=== PATIENT | female | born 1940 | race Asian ===

== ENCOUNTER 2016-09-24 10:29 | Outpatient (CLI) | payer OTHER ==
[~2016-09-24 10:29] MED LIST: ASA LOW DOSE81 MG PO; BENICAR40 MG PO; CHLORTHALID25 MG PO; CLON0.5T36 PO; CLONIDINE0.1 MG PO; HYDR25TA60 PO; HYDR5TAB9 PO; LORCET PLUS 7.51 TAB PO; SIMV20TA2 PO
== END 2016-09-24 19:13 | disposition home or self-care (01) ==
LOC: RAD 10:29
DX: R06.02 Shortness of breath (principal)

== ENCOUNTER 2016-12-11 09:23 | Emergency (ER) | payer OTHER ==
[~2016-12-11] VITALS: Ht 167.6 cm; Wt 72.6 kg
[2016-12-11 09:42] VITALS: TEMP 98.2
[2016-12-11] MEDS ORDERED: CADUET10 MG/40 M OR (09:42)
[2016-12-11] MEDS ORDERED: LOSA50TA PO (09:42)
[2016-12-11 10:23] LABS: POTASSIUM 4.2 mmol/L (3.6-5.2); SODIUM 135 mmol/L (136-145)
[2016-12-11 10:33] LABS: PLATELET COUNT 278 K/uL (152-353)
[2016-12-11 13:15] VITALS: BP 136/80
== END 2016-12-11 13:15 | disposition home or self-care (01) ==
LOC: ED 09:23
PROVIDERS: Specialist
DX: R01.1 Cardiac murmur, unspecified (principal); R29.818 Other symptoms and signs involving the nervous system
CPT/HCPCS: 36415; 80053; 81000; 82550; 82553; 83735; 84100; 84484; 85027; 85379; 93005; 99283

== ENCOUNTER 2017-11-21 07:09 | Emergency (ER) | payer OTHER ==
[~2017-11-21] VITALS: Ht 165.1 cm; Wt 72.6 kg
[~2017-11-21 07:09] MED LIST changes: +CADUET10 MG/40 M OR; +LOSA50TA PO
[2017-11-21 07:16] VITALS: TEMP 97.8
[2017-11-21] MEDS ORDERED: HYDR25CA25 PO (07:25)
[2017-11-21] MEDS ORDERED: AMLODIPINE BESYLATE PO (07:26)
[2017-11-21 08:09] LABS: PLATELET COUNT 434 K/uL (152-353)
[2017-11-21 08:40] LABS: POTASSIUM 3.8 mmol/L (3.6-5.2)
[2017-11-21 08:41] LABS: PARTIAL THROMBOPLASTIN TIME 30.8 SECONDS (24.5-33.6)
[2017-11-21 09:33] VITALS: BP 139/43
== END 2017-11-21 09:47 | disposition home or self-care (01) ==
LOC: ED 07:09
DX: R00.1 Bradycardia, unspecified (principal); I10 Essential (primary) hypertension; R20.0 Anesthesia of skin; M79.602 Pain in left arm
CPT/HCPCS: 36415; 80053; 82550; 84484; 85027; 85610; 85730; 93005; 99284

== ENCOUNTER 2018-05-21 02:17 | Emergency (ER) | payer OTHER ==
[~2018-05-21] VITALS: Ht 162.6 cm; Wt 75.3 kg
[~2018-05-21 02:17] MED LIST changes: +AMLODIPINE BESYLATE PO; +HYDR25CA25 PO
[2018-05-21 02:54] LABS: PLATELET COUNT 236 K/uL (152-353)
[2018-05-21 03:03] LABS: POTASSIUM 3.7 mmol/L (3.6-5.2)
[2018-05-21 03:19] LABS: PARTIAL THROMBOPLASTIN TIME 29.6 SECONDS (24.5-33.6)
[2018-05-21 04:40] VITALS: BP 152/50; TEMP 98
== END 2018-05-21 04:41 | disposition home or self-care (01) ==
LOC: ED 02:17
PROVIDERS: Family Medicine
DX: K21.9 Gastro-esophageal reflux disease without esophagitis (principal); R07.89 Other chest pain
CPT/HCPCS: 36415; 80053; 82550; 84484; 85027; 85610; 85730; 93005; 96374; 99284; J3490

== ENCOUNTER 2018-05-30 23:54 | Emergency (ER) | payer OTHER ==
[~2018-05-30] VITALS: Ht 162.6 cm; Wt 75.3 kg
[2018-05-31] MEDS ORDERED: HYDR25TA57 PO (00:12)
[2018-05-31] MEDS ORDERED: PANTOPRAZOLE 40MG TA PO (00:13)
[2018-05-31] MEDS ORDERED: CLON0.1T16 PO (00:13)
[2018-05-31 02:48] VITALS: BP 173/62; TEMP 98.1
== END 2018-05-31 02:50 | disposition home or self-care (01) ==
LOC: ED 23:54
DX: I10 Essential (primary) hypertension (principal)
CPT/HCPCS: 99283

== ENCOUNTER 2018-07-15 10:09 | Emergency (ER) | payer OTHER ==
[~2018-07-15] VITALS: Ht 162.6 cm; Wt 72.6 kg
[~2018-07-15 10:09] MED LIST changes: +CLON0.1T16 PO; +HYDR25TA57 PO; +PANTOPRAZOLE 40MG TA PO
[2018-07-15 11:11] LABS: POTASSIUM 3.6 mmol/L (3.6-5.2)
[2018-07-15 11:24] LABS: PLATELET COUNT 89 K/uL (152-353)
[2018-07-15] MEDS ORDERED: HYDRALAZINE HY100 MG PO (12:03)
[2018-07-15] MEDS ORDERED: HYZAAR1 TA2 PO (12:04)
[2018-07-15] MEDS ORDERED: CLON1TAB18 PO (12:06)
[2018-07-15] MEDS ORDERED: ALEN70TA19 PO (12:07)
[2018-07-15 17:37] VITALS: BP 186/70; TEMP 98
== END 2018-07-15 17:37 | disposition short-term general hospital (02) ==
LOC: ED 10:09
PROVIDERS: Emergency Medicine
DX: R79.89 Other specified abnormal findings of blood chemistry (principal); R00.1 Bradycardia, unspecified
CPT/HCPCS: 36415; 80053; 82550; 83735; 84484; 85027; 93005; 99284

== ENCOUNTER 2018-11-23 12:09 | Outpatient (CLI) | payer OTHER ==
[~2018-11-23 12:09] MED LIST changes: +ALEN70TA19 PO; +CLON1TAB18 PO; +HYDRALAZINE HY100 MG PO; +HYZAAR1 TA2 PO
== END 2018-11-23 19:16 | disposition home or self-care (01) ==
LOC: RAD 12:09
DX: L60.3 Nail dystrophy (principal); M79.675 Pain in left toe(s)

== ENCOUNTER 2019-01-01 08:24 | Emergency (ER) | payer OTHER ==
[~2019-01-01] VITALS: Ht 162.6 cm; Wt 72.6 kg
[2019-01-01 09:22] LABS: PLATELET COUNT 229 K/uL (152-353)
[2019-01-01 09:34] LABS: POTASSIUM 3.6 mmol/L (3.6-5.2)
[2019-01-01 11:19] LABS: PARTIAL THROMBOPLASTIN TIME 28.3 SECONDS (24.5-33.6)
[2019-01-01] MEDS ORDERED: CLOP75TA2 PO (13:25)
[2019-01-01] MEDS ORDERED: HYDR25TA60 PO (13:34)
[2019-01-01] MEDS ORDERED: AMLODIPINE BESYLATE PO (13:35)
[2019-01-01] MEDS ORDERED: COZAAR100 MG PO (13:36)
[2019-01-01] MEDS ORDERED: DIPH25CA90 PO (13:37)
[2019-01-01 15:45] VITALS: BP 159/55
== END 2019-01-01 15:45 | disposition home or self-care (01) ==
LOC: ED 08:24
PROVIDERS: Family Medicine
DX: R13.19 Other dysphagia (principal); K22.4 Dyskinesia of esophagus; R06.02 Shortness of breath; R00.1 Bradycardia, unspecified; Z79.899 Other long term (current) drug therapy
CPT/HCPCS: 36415; 80053; 80307; 81000; 82150; 82550; 82553; 83690; 83735; 83880; 84443; 84484; 85027; 85379; 85610; 85651; 85730; 87651; 93005; 96374; 96375; 99284; J1200; J2930; Q9963

== ENCOUNTER 2019-02-03 12:50 | Outpatient (CLI) | payer OTHER ==
[~2019-02-03 12:50] MED LIST changes: +CLOP75TA2 PO; +COZAAR100 MG PO; +DIPH25CA90 PO
== END 2019-02-03 21:46 | disposition home or self-care (01) ==
LOC: LABW 12:50
DX: K64.0 First degree hemorrhoids (principal)
CPT/HCPCS: 82272

== ENCOUNTER 2019-02-23 11:03 | Day surgery (SDC) | payer OTHER | END 2019-02-23 13:35 | disposition home or self-care (01) | LOC: OR 11:03 | PROC: 0DB68ZZ Excision of Stomach, Via Natural or Artificial Opening Endoscopic (ICD-10-PCS; principal; 2019-02-23) | PROC: 0D758ZZ Dilation of Esophagus, Via Natural or Artificial Opening Endoscopic (ICD-10-PCS; 2019-02-23) | DX: K29.50 Unspecified chronic gastritis without bleeding (principal); K22.10 Ulcer of esophagus without bleeding; K22.2 Esophageal obstruction; K44.9 Diaphragmatic hernia without obstruction or gangrene; R13.19 Other dysphagia; K21.0 Gastro-esophageal reflux disease with esophagitis; R10.13 Epigastric pain; K25.9 Gastric ulcer, unspecified as acute or chronic, without hemorrhage or perforation | CPT/HCPCS: J2001; J2405; J2704 ==

== ENCOUNTER 2019-07-02 01:29 | Observation (INO) | payer OTHER ==
[~2019-07-02] VITALS: Ht 165.1 cm; Wt 73.6 kg
[2019-07-02] VITALS (8 sets, daily range): BP systolic 149–189; BP diastolic 49–78; TEMP 97.7–97.8; Ht 165.1 cm; Wt 73.6 kg
[2019-07-02] MEDS ORDERED: PRAVASTATIN10 MG PO (01:49)
[2019-07-02] MEDS ORDERED: LISI20TA31 PO ×2 (01:50→11:58)
[2019-07-02 02:53] LABS: POTASSIUM 3.3 mmol/L (3.6-5.2)
[2019-07-02 03:31] LABS: PLATELET COUNT 209 K/uL (152-353)
[2019-07-02 03:32] LABS: PARTIAL THROMBOPLASTIN TIME 22.5 SECONDS (24.5-33.6)
--- NOTE | 2019-07-02 17:15 | NUR ---
PATIENT GIVEN DISCHARGE INSTRUCTIONS WITH VERBAL UNDERSTANDING. PATIENT EDUCATED ON THE IMPORTANCE OF KNOWING THE S/S OF CHEST PAIN /[place]. PATIENT UNDERSTANDS TEACHING. IV 22G TO THE RIGHT HAND REMOVED WITH TIP INTACT, 2X2 PLACED AND SECURED WITH TAPE.
== END 2019-07-02 22:11 | disposition home or self-care (01) ==
LOC: ED 01:29 → MED/SURG 07:15
PROVIDERS: ADMIT Family Medicine
DX: R07.89 Other chest pain (principal); I25.10 Atherosclerotic heart disease of native coronary artery without angina pectoris; I10 Essential (primary) hypertension; E78.49 Other hyperlipidemia; M81.8 Other osteoporosis without current pathological fracture; K21.9 Gastro-esophageal reflux disease without esophagitis
CPT/HCPCS: 36415; 80053; 82550; 82553; 84484; 85027; 85379; 85610; 85730; 93005; 96374; 99220; 99284; G0378

== ENCOUNTER 2019-09-26 12:33 | Emergency (ER) | payer OTHER ==
[~2019-09-26] VITALS: Ht 162.6 cm; Wt 73.9 kg
[~2019-09-26 12:33] MED LIST changes: +LISI20TA31 PO; +PRAVASTATIN10 MG PO
[2019-09-26 13:12] LABS: PLATELET COUNT 236 K/uL (152-353)
[2019-09-26 13:40] LABS: POTASSIUM 3.4 mmol/L (3.6-5.2)
[2019-09-26 14:14] VITALS: BP 157/38; TEMP 97.9
== END 2019-09-26 14:14 | disposition home or self-care (01) ==
LOC: ED 12:33
PROVIDERS: Family Medicine
DX: E86.0 Dehydration (principal)
CPT/HCPCS: 36415; 80053; 81000; 85027; 99283

== ENCOUNTER 2019-10-28 07:23 | Emergency (ER) | payer OTHER ==
[~2019-10-28] VITALS: Ht 162.6 cm; Wt 72.6 kg
[2019-10-28 08:11] LABS: PLATELET COUNT 202 K/uL (152-353)
[2019-10-28 09:55] VITALS: BP 142/57; TEMP 98.4
== END 2019-10-28 09:56 | disposition home or self-care (01) ==
LOC: ED 07:23
PROVIDERS: Hospitalist
DX: U07.1 COVID-19 (principal); R10.84 Generalized abdominal pain; R19.7 Diarrhea, unspecified; R11.2 Nausea with vomiting, unspecified
CPT/HCPCS: 36415; 80053; 81000; 83605; 83690; 85027; 96360; 96375; 99284; J2405

== ENCOUNTER 2020-01-20 08:37 | Outpatient (CLI) | payer OTHER | END 2020-01-20 20:34 | disposition home or self-care (01) | LOC: CT 08:37 | DX: G44.229 Chronic tension-type headache, not intractable (principal) ==

== ENCOUNTER 2020-02-05 08:48 | Emergency (ER) | payer OTHER ==
[~2020-02-05] VITALS: Ht 162.6 cm; Wt 72.6 kg
[2020-02-05 08:59] VITALS: TEMP 98.7
[2020-02-05 10:13] LABS: POTASSIUM 3.9 mmol/L (3.6-5.2)
[2020-02-05 10:20] LABS: PLATELET COUNT 212 K/uL (152-353)
[2020-02-05 13:14] VITALS: BP 136/66
== END 2020-02-05 13:14 | disposition home or self-care (01) ==
LOC: ED 08:48
PROVIDERS: Family Medicine
DX: K52.89 Other specified noninfective gastroenteritis and colitis (principal); E87.1 Hypo-osmolality and hyponatremia; I10 Essential (primary) hypertension
CPT/HCPCS: 36415; 80053; 81000; 85027; 87502; 87651; 96360; 96375; 99284; J2405

== ENCOUNTER 2020-02-11 18:36 | Emergency (ER) | payer OTHER ==
[~2020-02-11] VITALS: Ht 162.6 cm; Wt 74.4 kg
[2020-02-11 18:52] VITALS: TEMP 99.1
[2020-02-11 19:32] LABS: PLATELET COUNT 209 K/uL (152-353)
[2020-02-11 19:45] LABS: POTASSIUM 3.4 mmol/L (3.6-5.2)
[2020-02-11 21:12] VITALS: BP 164/61
== END 2020-02-11 21:14 | disposition home or self-care (01) ==
LOC: ED 18:36
PROVIDERS: Emergency Medicine
DX: I10 Essential (primary) hypertension (principal)
CPT/HCPCS: 36415; 80053; 85027; 93005; 99283

== ENCOUNTER 2020-02-24 15:50 | Outpatient (CLI) | payer OTHER | END 2020-02-25 03:43 | disposition home or self-care (01) | LOC: CT 15:50 | DX: E87.1 Hypo-osmolality and hyponatremia (principal); I10 Essential (primary) hypertension; R07.89 Other chest pain ==

== ENCOUNTER 2020-05-05 13:40 | Emergency (ER) | payer OTHER ==
[~2020-05-05] VITALS: Ht 162.6 cm; Wt 74.4 kg
[2020-05-05 14:03] LABS: PLATELET COUNT 210 K/uL (152-353)
[2020-05-05 14:16] LABS: POTASSIUM 3.9 mmol/L (3.6-5.2)
[2020-05-05 14:24] LABS: PARTIAL THROMBOPLASTIN TIME 23.4 SECONDS (24.5-33.6)
[2020-05-05 15:55] VITALS: BP 169/66; TEMP 97.3
== END 2020-05-05 15:55 | disposition short-term general hospital (02) ==
LOC: ED 13:40
PROVIDERS: Family Medicine
DX: R07.89 Other chest pain (principal); I21.4 Non-ST elevation (NSTEMI) myocardial infarction
CPT/HCPCS: 36415; 80053; 82550; 84484; 85027; 85610; 85730; 93005; 99284

== ENCOUNTER 2020-05-10 22:21 | Emergency (ER) | payer OTHER ==
[~2020-05-10] VITALS: Ht 162.6 cm; Wt 74.4 kg
[2020-05-10] MEDS ORDERED: SPIRONOLACT25 MG PO (23:08)
[2020-05-10] MEDS ORDERED: CLON0.1T16 PO (23:09)
[2020-05-10] MEDS ORDERED: CRESTOR20 MG PO (23:10)
[2020-05-10] MEDS ORDERED: ZESTRIL40 MG (23:11)
[2020-05-10] MEDS ORDERED: HYDRALAZINE HY100 MG PO (23:11)
[2020-05-10] MEDS ORDERED: ASPIRIN ADULT325 MG PO (23:12)
[2020-05-10 23:24] LABS: POTASSIUM 3.8 mmol/L (3.6-5.2)
[2020-05-10 23:26] LABS: PLATELET COUNT 207 K/uL (152-353)
[2020-05-10 23:32] LABS: PARTIAL THROMBOPLASTIN TIME 28.7 SECONDS (24.5-33.6)
[2020-05-11 00:35] VITALS: BP 182/52; TEMP 98.1
== END 2020-05-11 00:35 | disposition home or self-care (01) ==
LOC: ED 22:21
PROVIDERS: Hospitalist
DX: G44.209 Tension-type headache, unspecified, not intractable (principal); I10 Essential (primary) hypertension; Z98.890 Other specified postprocedural states
CPT/HCPCS: 36415; 80048; 85027; 85610; 85730; 96372; 99284; J1885; J2405

== ENCOUNTER 2020-05-28 21:20 | Observation (INO) | payer OTHER ==
[~2020-05-28] VITALS: Ht 162.6 cm; Wt 73.5 kg
[~2020-05-28 21:20] MED LIST changes: +ASPIRIN ADULT325 MG PO; +CRESTOR20 MG PO; +SPIRONOLACT25 MG PO; +ZESTRIL40 MG
[2020-05-28 21:40] VITALS: BP 204/76; TEMP 98.3
[2020-05-28 22:00] VITALS: BP 194/49
[2020-05-28 22:30] VITALS: BP 172/48
[2020-05-28 22:54] LABS: PLATELET COUNT 218 K/uL (152-353)
[2020-05-28 23:00] VITALS: BP 172/45
[2020-05-28 23:30] VITALS: BP 160/47
[2020-05-29] VITALS (10 sets, daily range): BP systolic 152–203; BP diastolic 40–61; TEMP 98.7–99; Ht 162.6 cm; Wt 73.5 kg
[2020-05-29] MEDS ORDERED: ASPIR-8181 MG PO (11:45)
[2020-05-29 13:52] LABS: POTASSIUM 3.2 mmol/L (3.6-5.2)
== END 2020-05-29 16:20 | disposition home or self-care (01) ==
LOC: ED 21:20 → MED/SURG 05-29 02:06
PROVIDERS: ADMIT Emergency Medicine Emergency Medical Services; ATTEND Internal Medicine
DX: I10 Essential (primary) hypertension (principal); K58.9 Irritable bowel syndrome, unspecified; R25.2 Cramp and spasm
CPT/HCPCS: 36415; 80048; 80053; 81000; 83605; 83735; 85027; 87040; 87635; 96360; 96361; 96365; 96366; 96375; 99220; 99284; G0378; J0360; J0696; J2060; U0003

== ENCOUNTER 2020-06-07 08:17 | Outpatient (CLI) | payer OTHER ==
[~2020-06-07 08:17] MED LIST changes: +ASPIR-8181 MG PO
[2020-06-07 09:10] LABS: PLATELET COUNT 286 K/uL (152-353)
[2020-06-07 09:34] LABS: POTASSIUM 4.1 mmol/L (3.6-5.2)
== END 2020-06-07 21:11 | disposition home or self-care (01) ==
LOC: LABW 08:17
PROVIDERS: ATTEND Internal Medicine
DX: I12.9 Hypertensive chronic kidney disease with stage 1 through stage 4 chronic kidney disease, or unspecified chronic kidney disease (principal); N18.32 Chronic kidney disease, stage 3b; R53.83 Other fatigue; D64.9 Anemia, unspecified; E53.8 Deficiency of other specified B group vitamins
CPT/HCPCS: 36415; 80053; 81000; 82024; 82088; 82306; 82330; 82533; 82570; 82607; 82728; 82746; 83540; 83550; 83735; 83835; 83970; 84100; 84155; 84244; 84436; 84439; 84443; 85027; 85652; 86038

== ENCOUNTER 2020-06-15 10:08 | Outpatient (CLI) | payer OTHER | END 2020-06-15 19:37 | disposition home or self-care (01) | LOC: LABW 10:08 | PROVIDERS: ATTEND Internal Medicine Gastroenterology | DX: R19.7 Diarrhea, unspecified (principal); R59.1 Generalized enlarged lymph nodes | CPT/HCPCS: 82705; 83630; 87015; 87045; 87324; 87328; 87329; 87338; 87449; 87899 ==

== ENCOUNTER 2020-07-12 21:31 | Emergency (ER) | payer OTHER ==
[~2020-07-12] VITALS: Ht 162.6 cm; Wt 73.5 kg
[2020-07-12 22:32] LABS: PLATELET COUNT 233 K/uL (152-353)
[2020-07-12 22:36] LABS: POTASSIUM 3.8 mmol/L (3.6-5.2)
[2020-07-12 22:44] LABS: PARTIAL THROMBOPLASTIN TIME 29.8 SECONDS (24.5-33.6)
[2020-07-13 05:05] VITALS: BP 166/77; TEMP 97.9
== END 2020-07-13 05:05 | disposition short-term general hospital (02) ==
LOC: ED 21:31
PROVIDERS: Hospitalist
DX: R07.89 Other chest pain (principal); I21.4 Non-ST elevation (NSTEMI) myocardial infarction; I25.10 Atherosclerotic heart disease of native coronary artery without angina pectoris; R00.2 Palpitations; Z20.828 Contact with and (suspected) exposure to other viral communicable diseases
CPT/HCPCS: 36415; 80053; 80320; 81000; 82550; 83880; 84484; 85027; 85610; 85730; 87635; 93005; 96361; 96365; 99284; U0003

== ENCOUNTER 2020-10-12 13:34 | Outpatient (CLI) | payer OTHER ==
[2020-10-12 14:13] LABS: PLATELET COUNT 209 K/uL (152-353)
== END 2020-10-12 22:21 | disposition home or self-care (01) ==
LOC: LABW 13:34
PROVIDERS: ATTEND Nurse Practitioner
DX: N18.32 Chronic kidney disease, stage 3b (principal)
CPT/HCPCS: 36415; 80053; 81000; 82330; 82570; 83735; 84100; 84155; 85027

== ENCOUNTER 2020-11-29 09:53 | Outpatient (CLI) | payer OTHER ==
[2020-11-29 11:15] LABS: POTASSIUM 4.3 mmol/L (3.6-5.2)
== END 2020-11-29 19:45 | disposition home or self-care (01) ==
LOC: LABW 09:53
PROVIDERS: ATTEND Internal Medicine Cardiovascular Disease
DX: Z79.899 Other long term (current) drug therapy (principal); R06.02 Shortness of breath
CPT/HCPCS: 36415; 80048; 83880

== ENCOUNTER 2021-02-08 10:32 | Outpatient (CLI) | payer OTHER | END 2021-02-08 19:18 | disposition home or self-care (01) | LOC: LABW 10:32 | PROVIDERS: ATTEND Internal Medicine | DX: N18.32 Chronic kidney disease, stage 3b (principal) | CPT/HCPCS: 36415; 84100 ==

== ENCOUNTER 2021-02-18 11:23 | Outpatient (CLI) | payer OTHER ==
[2021-02-18 11:37] LABS: PLATELET COUNT 214 K/uL (152-353)
[2021-02-18 11:53] LABS: POTASSIUM 4.4 mmol/L (3.6-5.2)
== END 2021-02-18 20:03 | disposition home or self-care (01) ==
LOC: LABW 11:23
PROVIDERS: ATTEND Nurse Practitioner Family
DX: Z01.812 Encounter for preprocedural laboratory examination (principal); Z79.82 Long term (current) use of aspirin; I10 Essential (primary) hypertension; I70.213 Atherosclerosis of native arteries of extremities with intermittent claudication, bilateral legs; I77.1 Stricture of artery
CPT/HCPCS: 36415; 80053; 85027

== ENCOUNTER 2021-02-19 10:08 | Outpatient (CLI) | payer OTHER | END 2021-02-19 19:11 | disposition home or self-care (01) | LOC: CT 10:08 | PROVIDERS: ATTEND Nurse Practitioner Family | DX: G44.229 Chronic tension-type headache, not intractable (principal) ==

== ENCOUNTER 2021-05-01 10:49 | Outpatient (CLI) | payer OTHER ==
[2021-05-01 11:25] LABS: PLATELET COUNT 196 K/uL (152-353)
[2021-05-01 11:44] LABS: POTASSIUM 3.9 mmol/L (3.6-5.2)
== END 2021-05-01 20:25 | disposition home or self-care (01) ==
LOC: LABW 10:49
PROVIDERS: ATTEND Nurse Practitioner Family
DX: N95.8 Other specified menopausal and perimenopausal disorders (principal); N18.32 Chronic kidney disease, stage 3b
CPT/HCPCS: 36415; 80053; 81000; 82330; 82570; 83735; 84100; 84155; 85027

== ENCOUNTER 2021-09-06 17:07 | Observation (INO) | payer OTHER ==
[~2021-09-06] VITALS: Ht 165.1 cm; Wt 70.4 kg
[2021-09-06 17:14] VITALS: BP 164/91; TEMP 97
[2021-09-06 17:53] LABS: PLATELET COUNT 199 K/uL (152-353)
[2021-09-06 18:03] LABS: POTASSIUM 4.1 mmol/L (3.6-5.2)
[2021-09-06 18:39] LABS: PARTIAL THROMBOPLASTIN TIME 27.3 SECONDS (24.5-33.6)
[2021-09-06 19:30] VITALS: BP 138/44
[2021-09-06 20:00] VITALS: BP 139/42
[2021-09-06 20:30] VITALS: BP 166/59
[2021-09-07] VITALS (7 sets, daily range): BP systolic 130–153; BP diastolic 39–57; TEMP 97.7–98.6; Ht 165.1 cm; Wt 70.4 kg
[2021-09-07] MEDS ORDERED: HYDR25TA60 PO (12:29)
[2021-09-07] MEDS ORDERED: DICYCLOMINE HYD10 MG PO (12:30)
[2021-09-07] MEDS ORDERED: SMZ-TMP DS1 TAB PO (12:37)
[2021-09-07] MEDS ORDERED: TELMISARTAN40 MG PO (12:42)
[2021-09-08] VITALS: BP 158/54; TEMP 98.4
[2021-09-08 04:00] VITALS: BP 146/58; TEMP 98.5
[2021-09-08 05:06] LABS: PLATELET COUNT 199 K/uL (152-353)
[2021-09-08 05:21] LABS: POTASSIUM 4.3 mmol/L (3.6-5.2)
[2021-09-08 08:00] VITALS: BP 168/57; TEMP 97.9
== END 2021-09-08 08:52 | disposition left against medical advice (07) ==
LOC: ED 17:07 → MED/SURG 18:45
PROVIDERS: Hospitalist; ADMIT Internal Medicine Endocrinology, Diabetes & Metabolism; ATTEND Internal Medicine Endocrinology, Diabetes & Metabolism
DX: R00.2 Palpitations (principal); E86.0 Dehydration; I12.9 Hypertensive chronic kidney disease with stage 1 through stage 4 chronic kidney disease, or unspecified chronic kidney disease; N18.4 Chronic kidney disease, stage 4 (severe); N17.8 Other acute kidney failure; K21.9 Gastro-esophageal reflux disease without esophagitis
CPT/HCPCS: 36415; 80053; 80320; 81000; 82550; 83880; 84484; 85027; 85610; 85730; 87635; 93005; 96360; 96361; 96365; 96367; 96372; 96374; 99220; 99284; G0378; J0696; J1650; J2405; U0003

== ENCOUNTER 2021-11-06 10:04 | Outpatient (CLI) | payer OTHER ==
[~2021-11-06 10:04] MED LIST changes: +DICYCLOMINE HYD10 MG PO; +SMZ-TMP DS1 TAB PO; +TELMISARTAN40 MG PO
[2021-11-06 10:41] LABS: PLATELET COUNT 241 K/uL (152-353)
[2021-11-06 10:44] LABS: POTASSIUM 3.8 mmol/L (3.6-5.2)
== END 2021-11-06 19:11 | disposition home or self-care (01) ==
LOC: LABW 10:04
PROVIDERS: ATTEND Internal Medicine
DX: N18.32 Chronic kidney disease, stage 3b (principal)
CPT/HCPCS: 36415; 80053; 81000; 82330; 82570; 83735; 84100; 84156; 85027

== ENCOUNTER 2021-11-24 13:14 | Emergency (ER) | payer OTHER ==
[~2021-11-24] VITALS: Ht 165.1 cm; Wt 70.3 kg
[2021-11-24 13:17] VITALS: TEMP 97.6
[2021-11-24 13:45] LABS: PLATELET COUNT 241 K/uL (152-353)
[2021-11-24 14:12] VITALS: BP 168/72
== END 2021-11-24 14:22 | disposition home or self-care (01) ==
LOC: ED 13:14
PROVIDERS: Hospitalist
DX: K59.09 Other constipation (principal)
CPT/HCPCS: 80053; 85027; 99283

== ENCOUNTER 2022-05-27 10:08 | Outpatient (CLI) | payer OTHER ==
[2022-05-27 11:04] LABS: POTASSIUM 4.3 mmol/L (3.6-5.2)
== END 2022-05-27 18:59 | disposition home or self-care (01) ==
LOC: LABW 10:08
PROVIDERS: ATTEND Internal Medicine
DX: N18.32 Chronic kidney disease, stage 3b (principal)
CPT/HCPCS: 36415; 80053

== ENCOUNTER 2022-05-28 09:07 | Outpatient (CLI) | payer OTHER | END 2022-05-28 19:14 | disposition home or self-care (01) | LOC: RAD 09:07 | PROVIDERS: ATTEND Orthopaedic Surgery | DX: M25.511 Pain in right shoulder (principal) ==

== ENCOUNTER 2022-07-24 09:43 | Outpatient (CLI) | payer OTHER | END 2022-07-24 19:18 | disposition home or self-care (01) | LOC: LABW 09:43 | PROVIDERS: ATTEND Specialist | DX: E78.49 Other hyperlipidemia (principal) | CPT/HCPCS: 36415; 80061 ==

== ENCOUNTER 2022-09-11 14:34 | Outpatient (CLI) | payer OTHER | END 2022-09-11 18:00 | disposition home or self-care (01) | LOC: MRI 14:34 | PROVIDERS: ATTEND Orthopaedic Surgery | DX: M25.511 Pain in right shoulder (principal); M19.011 Primary osteoarthritis, right shoulder; M75.41 Impingement syndrome of right shoulder; M75.111 Incomplete rotator cuff tear or rupture of right shoulder, not specified as traumatic ==

== ENCOUNTER 2022-11-20 10:19 | Outpatient (CLI) | payer OTHER ==
[2022-11-20 10:36] LABS: PLATELET COUNT 214 K/uL (152-353)
[2022-11-20 11:01] LABS: POTASSIUM 3.9 mmol/L (3.6-5.2)
== END 2022-11-20 19:19 | disposition home or self-care (01) ==
LOC: LABW 10:19
PROVIDERS: ATTEND Nurse Practitioner Family
DX: R11.0 Nausea (principal); M79.602 Pain in left arm
CPT/HCPCS: 36415; 80053; 82550; 82553; 84484; 85027; 93005

== ENCOUNTER 2022-11-20 11:35 | Emergency (ER) | payer OTHER ==
[~2022-11-20] VITALS: Ht 165.1 cm; Wt 66.2 kg
[2022-11-20 11:40] VITALS: TEMP 97.7
[2022-11-20 19:00] VITALS: BP 145/42
== END 2022-11-20 13:03 | disposition home or self-care (01) ==
LOC: ED 11:35
DX: R77.8 Other specified abnormalities of plasma proteins (principal)
CPT/HCPCS: 81002; 82550; 83690; 84484; 86140; 93005; 96372; 99284; J1650

== ENCOUNTER 2023-02-10 08:19 | Outpatient (CLI) | payer OTHER ==
[2023-02-10 08:59] LABS: POTASSIUM 3.7 mmol/L (3.6-5.2)
== END 2023-02-10 20:43 | disposition home or self-care (01) ==
LOC: LABW 08:19
PROVIDERS: ATTEND Specialist
DX: E78.49 Other hyperlipidemia (principal)
CPT/HCPCS: 36415; 80053; 80061